=== PATIENT | male | born 1940 | race Hispanic/Latino ===

== ENCOUNTER 2021-08-16 16:34 | Emergency (ER) | payer OTHER, SELFPAY ==
--- NOTE | 2021-08-16 16:47 | ED.GENADULT ---
HPI - General Adult General Chief complaint: Medical Clearance Stated complaint: Dizzy,Loss of Balance Time Seen by Provider: 08/16/21 17:04 Source: patient and family Mode of arrival: ambulatory Limitations: language barrier (Envelope Folding Machine Adjuster line used, son-in-law also helping to interpret) History of Present Illness HPI narrative: 81-year-old male presents with concern for dizziness and loss of balance that started yesterday. He reports he is experiencing dizziness when he stands up too quickly. He denies syncope, loss of consciousness, chest pain, shortness of breath, headache, weakness in any extremity. Reports he feels a pressure in his left ear. He reports he has been taking medication equivalent to verapamil from [place], he only takes this occasionally when he feels he needs it. He does not have a primary care doctor. Patient son-in-law reports that he is currently being treated by orthopedics for low back pain that is causing tingling and numbness in one of his lower legs, he is scheduled to have MRI next week. MD complaint: Dizziness Related Data Home Medications Medication Instructions Recorded Confirmed dexamethasone sodium phosphate 0.1 2 drp ophthalmic (eye) DIRECTED 08/16/21 08/16/21 % eye drops verapamil 80 mg tablet 80 mg PO DAILY 08/16/21 08/16/21 Allergies Allergy/AdvReac Type Severity Reaction Status Date / Time No Known Allergies Allergy Unverified 08/16/21 16:51 Review of Systems Review of Systems: CONSTITUTIONAL: Denies malaise, chills, sweats, or fever. EYES: Denies visual changes, redness, or discharge. ENT: Denies rhinorrhea, congestion, sinus pain, or sore throat. Reports left ear pressure CARDIOVASCULAR: Denies chest pain, palpitations, or edema. RESPIRATORY: Denies cough or dyspnea. GASTROINTESTINAL: Denies abdominal pain, nausea, vomiting, diarrhea, change in appetite MUSCULOSKELETAL: Denies back pain, joint pain, or myalgia. NEUROLOGIC: Denies numbness, weakness, or headache. Reports dizziness and loss of balance All systems reviewed & are unremarkable except as noted in HPI and below PMFSH Comments At time of signature, agree with nursing past medical, surgical, social and family history. There is no relevant family history pertinent to the presenting complaint Exam Narrative: GENERAL: Well-appearing, well-nourished, and in no acute distress. HEAD: Normocephalic, atraumatic. EYES: PERRLA and EOMI. No nystagmus. ENT: Nares clear, no rhinorrhea. Mucous membranes moist. TM pearly montoya with sharp light reflex on the right, dull right reflex on the left; no tragal tenderness. Oropharynx without erythema or lesions. Tonsils not enlarged and without exudate. NECK: Supple. No lymphadenopathy. No jugular venous distension, thyromegaly, or carotid bruits. Carotids were easily palpable bilaterally. CHEST: No respiratory distress. Clear to auscultation. No bony deformities, no asymmetry. Speaks in full sentences. HEART: Regular rate and rhythm. No murmur heard. Normal peripheral pulses. EXTREMITIES: Normal range of motion. No edema. Normal strength and sensation. SKIN: Warm, dry, no visible rash. NEURO: Alert and oriented x3. No focal deficits. Cranial nerves II through XII grossly intact. [place]-Hallpike test inconclusive PSYCH: Normal mood and affect Course Course Emergency Course: Discussed limited diagnostic capability at [facility]. Discussed exam findings. Discussed possible transfer to emergency department for further evaluation versus treating for potential eustachian tube dysfunction that may lead to dizziness. Patient and his son-in-law do not want be transferred to the emergency room at this time. Patient is aware of diagnosis, understands and agrees to treatment plan. Anticipatory guidance given. Patient agrees to follow-up as directed and is aware of reasons to seek care at the emergency department. Portions of this record may have been created with voice recognition software Level
[2021-08-16 17:05] VITALS: BP 101/54; PULSE 56
[2021-08-16 17:06] VITALS: BP 101/50; PULSE 63
[2021-08-16 17:07] VITALS: BP 110/59; BP 95/53; PULSE 64; RESP 18; TEMP 36.9; O2SAT 100
--- NOTE | 2021-08-16 17:12 | PC.NURSE ---
opi contacted, evan is educational sign language interpreter, and shutdown coordinator in room on speaker phone.
== END 2021-08-16 17:31 | disposition home or self-care (01) ==
PROVIDERS: Emergency Provider Nurse Practitioner; PCP Registered Nurse
DX: R42 Dizziness and giddiness (principal); H69.92 Unspecified Eustachian tube disorder, left ear; I10 Essential (primary) hypertension
CPT/HCPCS: 99213; G0463

== ENCOUNTER 2022-05-19 08:36 | Outpatient (CLI) | payer OTHER, SELFPAY ==
[2022-05-19 12:38] LABS: Basophils Percent Auto 0.7 % (0.2-1.2); Eosinophils Absolute Auto 0.1 K/mm3 (0-0.3); Eosinophils Percent Auto 2.5 % (0-4.4); Hematocrit 36.8 % (42.0-52.0); Hemoglobin 12.2 g/dL (14.0-18.0); Immature Granulocyte Absolute 0.01 K/mm3 (0.00-0.031); Immature Granulocyte Percent A 0.2 % (0-0.5); Lymphocytes Absolute Auto 1.41 K/mm3 (0.9-3.2); Mean Corpuscular HGB Conc 33.2 g/dl (32-36); Mean Corpuscular Hemoglobin 29.8 pg (26-34); Mean Corpuscular Volume 89.8 fl (80-100); Mean Platelet Volume 10.3 fl (7.4-10.4); Monocytes Absolute Auto 0.3 K/mm3 (0.1-0.6); Monocytes Percent Auto 5.7 % (2.6-8.5); Neutrophils Absolute Auto 2.6 K/mm3 (1.3-6.7); Neutrophils Percent Auto 58.9 % (45.5-73.1); Platelet Count Result 177 k/mm3 (150-375); Red Cell Distribution Width 19.7 % (11.5-14.5); White Blood Count 4.4 K/mm3 (4.5-10.0)
[2022-05-19 12:47] LABS: Alanine Aminotransferase 22 U/L (6-50); Albumin Level 3.8 g/dL (3.5-5.1); Alkaline Phosphatase 65 U/L (38-126); Anion Gap 4 mmol/L (8-16); Aspartate Amino Transferase 43 U/L (17-59); Bilirubin,Total 0.9 mg/dL (0.2-1.3); Blood Urea Nitrogen 19 mg/dL (9-20); Calcium 8.3 mg/dL (8.4-10.2); Carbon Dioxide 30 mmol/L (22-30); Chloride 105 mmol/L (98-107); Cholesterol 146 mg/dL (0-200); Estimated Glomerular Filt Rate > 60; Glucose 96 mg/dL (65-110); HDL Direct 44 mg/dL; Potassium 3.9 mmol/L (3.4-5.0); Sodium 139 mmol/L (137-145); Triglycerides 85 mg/dL (<150)
[2022-05-19 13:04] LABS: LDL Cholesterol Direct 78 mg/dL
[2022-05-20 14:42] LABS: Prostate Specific Antigen 0.7 ng/mL (< OR = 4.0)
== END 2022-05-19 08:37 | disposition home or self-care (01) ==
LOC: ANHGOSHLAB 08:37
PROVIDERS: PCP Family Medicine; Visit Provider Family Medicine
DX: Z13.220 Encounter for screening for lipoid disorders (principal); I10 Essential (primary) hypertension; Z13.228 Encounter for screening for other metabolic disorders; R53.83 Other fatigue; Z12.5 Encounter for screening for malignant neoplasm of prostate
CPT/HCPCS: 36415; 80053; 80061; 84153; 85025; G0103

== ENCOUNTER 2025-02-06 09:46 | Outpatient (CLI) | payer MEDICARE, MEDICAID, SELFPAY ==
--- OUTSIDE RECORDS SUMMARY | 2025-02-06 10:59 | XMS_ITS | Clinical Summary ---
Author Organization [facility] Address [address] [place] [address] Care Team Providers Care Glass Block Bender Name Role Phone John Alberts DO Primary Care Provider [phone] Source Comments [facility],non-owned Affiliates and Associated Physician Practices is amultiple site organization consisting of ambulatory clinics and hospital sitesin [place], [place], [place] and [place]. This disclosure is being madepursuant to the Care Everywhere program and may not contain all information available regarding this patient. Last updated 17.[facility] Allergies No known active allergies Medications * Be aware that medications may not be up to date on this document. Alwaysverify current medications with the patient. prednisoLONE acetate (Pred Forte) 1 % ophthalmic suspension Instill 1 (one) drop into left eye as needed Active carboxymethylce llulose 1 % ophthalmic gel Activ e Active Problems No known active problems Social History Tobacco Use Types Packs/Day Years Used Date Smoking Tobacco: Never Assessed Sex and Gender Information Value Date Recorded Sex Assigned at Not on file Legal Sex Male 10:48 AM CDT Gender Identity Not on file Sexual Orientation Not on file Plan of Treatment Health Maintenance Due Date Last Done Comments DTAP/TDAP/TD VACCINES (1 - Tdap) 1960 PNEUMOCOCCAL VACCINE 50+ (1 of 1 - PCV) 07/30/1991 ZOSTER VACCINE (1 of 2) 07/30/1991 Respiratory Syncytial Virus (RSV) Vaccine Pt: or over 60 yrs (1 - 1-dose 75+ series) 2016 DEPRESSION SCREENING 02/17/2024 COVID-19 VACCINE (2024-2 6 season) 2024 INFLUENZA VACCINE (#1) 2024 HEPATITIS B VACCINE Aged Out No longe r eligible based on patient's age to complete this topic HIB VACCINE Aged Out No longer eligi ble based on patient's age to complete this topic HPV VACCINE Aged Out No longer eligi ble based on patient's age to complete this topic MENINGOCOCCAL (Group B) VACC INE SHARED DECISION-MAKING Aged Out No longer eligibl e based on patient's age to complete this topic MENINGOCOCCAL GROUPS A/C/Y/W VACCINE Aged Out No longer eligible b ased on patient's age to complete this topic Insurance [facility] Care Teams Glass Block Bender Relationship Specialty Start Date End Date John Alberts DO [facility] [place] [address] PCP - General Family Medicine 10/15/23
== END 2025-02-06 09:47 | disposition home or self-care (01) ==
LOC: ANHAUDIO 09:46
PROVIDERS: PCP Family Medicine; Visit Provider Family Medicine
DX: H61.22 Impacted cerumen, left ear (principal); D64.9 Anemia, unspecified; H90.42 Sensorineural hearing loss, unilateral, left ear, with unrestricted hearing on the contralateral side
CPT/HCPCS: 92553; 92567